=== PATIENT | female | born 1950 | race Caucasian/White ===

== ENCOUNTER 2019-10-29 09:30 | Inpatient (IN) | payer MEDICARE, BC ==
[2019-10-28 12:21] VITALS: BMI 32.1
--- NOTE | 2019-11-02 05:24 | HP ---
REASON FOR HISTORY AND PHYSICAL: Surgery on 11/02/2019, case #[id number]. CHIEF COMPLAINT: Low back pain. HISTORY OF PRESENT ILLNESS: Ms. Iglesias is a 69-year-old female, many years of severe lower back pain. A little over a year ago, she has tried ablations, injections, physical therapy, lifestyle modifications, medications, without any successful permanent relief. Her pain and not having a good quality of life has made her want to attempt surgery. REVIEW OF SYSTEMS: CONSTITUTIONAL: Denies fever or chills. EAR, NOSE, AND THROAT: Denies change in vision or hearing. CARDIAC: Denies chest pain, shortness of breath, or diaphoresis. PULMONARY: Denies shortness of breath, cough, or hemoptysis. GI: Denies abdominal pain, nausea, vomiting, diarrhea, change in stool formation or consistency. : Denies trouble with urination, frequency of urination, or bloody urine. SKIN: Denies skin rash, bruising, bleeding, or skin masses. MUSCULOSKELETAL: As per history of present illness. NEUROLOGIC: As per history of present illness. PSYCHOLOGIC: As per history of present illness. MEDICAL HISTORY: Blood transfusion, depression, headaches, heart disease, high blood pressure, osteoporosis. SURGERIES: In 2004 left shoulder impingement, 1991 right shoulder impingement, in 1990 C5, C6 and C7 fusion; 1987 hysterectomy; 1971 benign tumor lymph gland on the left neck, 2012 Reveal XT hospital monitor implant, 2013 repair 2 tears and removal of the bursa in the right hip; 2013 total hip replacement, right; 2014 right shoulder impingement; 1997 benign biopsy; 2014 implanted pacemaker; 2016 removal of the Reveal XT hospital monitor implant; 2018 Left foot, 2019 cataract. HOSPITALIZATION: As above surgeries. MEDICATIONS: 1. Spironolactone 25 mg. 2. Baby aspirin. 3. Torsemide 20 mg two times a day. 4. Estradiol 0.5 mg. 5. Topamax 50 mg. 6. . 7. Prolia injections. 8. Cymbalta 60 mg. 9. Biotin 1000 mcg. 10. Bystolic 10 mg. 11. D3 1000 international units daily. ADDITIONAL MEDICAL HISTORY: Pulmonary hypertension, CAD, CHF, mitral valve regurgitation, stable angina, syncope, PVD, colitis. ALLERGIES: MORPHINE AND ADHESIVE. FAMILY HISTORY: Father , diagnosed with diabetes and stroke. Mother , diagnosed with hypertension and heart disease. SOCIAL HISTORY: Denies tobacco use or illicit drug use. Occasional alcohol use. PHYSICAL EXAMINATION: VITAL SIGNS: Weight 175, height 5 feet 2 inches. HEENT: Pupils are equal. Extraocular movements are intact. NECK: Soft, supple. No masses are noted. Range of motion is intact and nonpainful. NEUROLOGIC: Awake, alert, and oriented x3. Attention and fund of knowledge normal. Cranial nerves grossly intact. Gait and station: Normal. Motor exam: Normal strength in the iliopsoas, quadriceps, hamstrings, anterior tib, EHL, gastroc, toe flexors. Sensory exam: No dermatomal sensory loss in L1, L2, L3, L4, L5, or S1. Spine exam: Tender lower lumbar facet in extension. IMAGING STUDIES: Myelogram, large L5-S1 facet without neural compression. X-ray ; flexion extension: stable. ASSESSMENT: Spondylosis without myelopathy or radiculopathy. PLAN: 1. TLIF L5-S1. 2. Preop labs; CBC, PT, PTT, COVID-19. 3. Clearance. 4. Orthosis: LSO, lumbosacral orthotics. 5. Stop aspirin 1 week before surgery. May return on aspirin 1 week after surgery. INFORMED CONSENT: We discussed the indications, risks, benefits, alternatives, and expected results from surgery. The risks discussed included, but were not limited to, bleeding, infection, CSF leak, nerve damage, weakness, incontinence, cauda equina injury, arachnoiditis, paralysis, ventilator dependency, wheelchair dependency, loss of vision, hardware misplacement, cardiopulmonary complications of anesthesia or . Long-term complications discussed included, but were not limited to, degeneration of the surrounding disk and future surgery. She understands the risks and is willing to proceed. Job ID: [id number] [facility]
[2019-11-02] MEDS ORDERED: Thrombin 5000 UNITS/5 ML VIAL ONE (06:12)
[2019-11-02] MEDS ORDERED: Bupivacaine PF 0.5% 30 ML VIAL ONE (06:12)
[2019-11-02] MEDS ORDERED: EPINEPHrine 1 MG/ML AMP ONE (06:12)
[2019-11-02] MEDS ORDERED: SUGAMMADEX SODIUM 200 MG/2 ML VIAL ONE (06:57)
[2019-11-02] MEDS ORDERED: Fentanyl 100 MCG/2 ML VIAL ONE ×5 (07:06→14:03)
[2019-11-02] MEDS ORDERED: Phenylephrine 10 MG/ML VIAL ONE (08:17)
[2019-11-02] MEDS ORDERED: PHENYLEPHRINE-NS 100 MCG/ML 10 ML SYRINGE ONE ×2 (08:17→09:20)
[2019-11-02] MEDS ORDERED: Dexamethasone 20 MG/5 ML VIAL ONE (09:20)
[2019-11-02] MEDS ORDERED: Lidocaine 1% PF 5 ML VIAL ONE (09:20)
[2019-11-02] MEDS ORDERED: PROPOFOL 200 MG/20 ML VIAL ONE (09:20)
[2019-11-02] MEDS ORDERED: EPHEDRINE 25 MG/5 ML SYRINGE ONE (09:20)
[2019-11-02] MEDS ORDERED: Ondansetron PF 4 MG/2 ML Vial ONE (09:20)
[2019-11-02] MEDS ORDERED: Rocuronium Bromide 10 MG/ML (10ML VIAL) ONE (09:20)
[2019-11-02] MEDS ORDERED: Scopolamine 1.5 mg/72 hour Patch TD PRN (11:28)
[2019-11-02] MEDS ORDERED: Milk Of Magnesia 30 ML UDCUP PO PRN (11:28)
[2019-11-02] MEDS ORDERED: Mag-Al 1200 mg/1200 mg/30 ML UDCUP PO PRN (11:28)
[2019-11-02] MEDS ORDERED: diphenhydrAMINE 50 MG/ML VIAL IVP PRN (11:28)
[2019-11-02] MEDS ORDERED: tiZANidine HCl 4 MG TAB PO PRN (11:28)
[2019-11-02] MEDS ORDERED: Promethazine 25 MG TAB PO PRN (11:28)
[2019-11-02] MEDS ORDERED: Promethazine HCl 25 MG/ML VIAL IM PRN ×2 (11:28→11:32)
[2019-11-02] MEDS ORDERED: HYDROcodone/Acetaminophen 10/325 mg Tablet PO PRN (11:31)
[2019-11-02] MEDS ORDERED: Furosemide 20 MG TAB PO PRN (11:31)
[2019-11-02] MEDS ORDERED: Ondansetron HCl/PF 4 MG/2 ML Vial IVP PRN (11:32)
[2019-11-02] MEDS ORDERED: Promethazine HCl 25 MG/ML VIAL SLOW IVP PRN (11:32)
[2019-11-02] MEDS ORDERED: Fentanyl 100 MCG/2 ML VIAL SLOW IVP PRN ×2 (11:34→11:35)
[2019-11-02] MEDS ORDERED: Docusate 100 MG CAP PO PRN (11:36)
[2019-11-02] MEDS: CEFAZOLIN 2 GM in Premix Bag 1 BAG IVPB SCH ×2 (14:52→22:22)
--- NOTE | 2019-11-02 17:23 | OP ---
DATE OF PROCEDURE: 11/02/2019 [employer]AL [employer]UCK DRIVER: Justo Carlson PA-C PREOPERATIVE INDICATION: Treat pain and prevent neurological deterioration. PREOPERATIVE DIAGNOSIS: Advanced spondylosis with facet arthropathy and back pain at L5-S1 with some foraminal stenosis at L5-S1, refractory to all nonsurgical management. POSTOPERATIVE DIAGNOSIS: Advanced spondylosis with facet arthropathy and back pain at L5-S1 with some foraminal stenosis at L5-S1, refractory to all nonsurgical management. PROCEDURES PERFORMED: Decompressive laminectomy with medial facetectomy and wide foraminotomy bilateral at L5-S1; transforaminal lumbar interbody arthrodesis L5-S1, placement of intervertebral biomechanical device L5-S1; posterolateral arthrodesis and pedicle screw instrumentation, L5-S1; local morselized autograft, morselized allograft. PREOPERATIVE MEDICATIONS: Ancef 2 g IV. DRAIN NUMBER: Zero. DRAIN TYPE: None. DESCRIPTION OF PROCEDURE: The patient was brought to the operating room. General endotracheal anesthesia was induced. The patient was positioned prone on the operating table with the appropriate padding for the chest and hips. The Heath frame was used. A lateral fluoro radiograph was used to plan our incision. The lumbar skin was sterilely prepped and draped. We opened a midline incision with a 10 blade knife and we controlled bleeding with bipolar and monopolar cautery. We used monopolar cautery to dissect through subcutaneous tissues to the thoracodorsal fascia. We incised the fascia in the midline and reflected the paraspinal muscles off the spinous process and lamina of L5 and S1. A self-retaining retractor was placed and a lateral fluoro radiograph confirmed the levels upon which we were operating. We then dissected over the facet joints at L4-L5 and L5-S1 to identify the sacral ala and the transverse process of L5 bilaterally. We irrigated with bacitracin irrigation. With that Adson rongeur, we removed the spinous process of L5 and the superior portion of the sacrum. We performed a laminectomy with Adson, Leksell, and Kerrison rongeurs. The Retana ball was passed out the L5 foramen with each of the nerve roots. The patient's right L5-S1 foramen was tight and a little bit worse in the L5-S1 foramen on the left side. We performed wide foraminotomies to decompress the neural elements. This was more than what was needed for the arthrodesis alone. We then turned our attention to stabilization once neural elements were decompressed. We performed a complete facetectomy on the left at L5-S1. Through the pathway created by the facetectomy, we could access the intervertebral space. We incised the disk and removed disk contents using curettes and rongeurs. We gently retracted the thecal sac medially and using a bone rasp of progressively increasing diameter, we measured the height of the interspace to 12 mm. A 12-mm PEEK intervertebral graft was brought into the field. Our laminectomy bone was morselized on the back table after cleaning it of soft tissue attachments. The morselized bone was added into demineralized bone matrix to form a fusion substrate and the substrate was packed in the center of the interbody device. Then, we advanced the interbody device under radiographic guidance into the interspace to the appropriate depth. We turned our attention to pedicle screw instrumentation. Using bony anatomic landmarks, palpation of the medial portion of the pedicles and a lateral fluoro radiograph as our guide, we chose entry points for pedicle screws at L5 and S1 bilaterally. We drilled out our entry point, used a bone awl to create our trajectories. We tapped each trajectory with a threaded tap and we probed with a ball probe. We found it completely encased in bone. We placed 6.5 x 40 mm screws in the L5 and S1 pedicles bilaterally. A 360-degree image set was generated with our isocentric C-arm. This confirmed adequate positioning of our pedicle screw instrumentation. We irrigated with bacitracin irrigation. Rods were dropped down into the screw heads and we tightened caps over the rods. We used a gentle compressive force across the interspace to keep our interbody graft in place. Using a torque/counter-torque mechanism, we ensured adequate tightness of the caps. We irrigated once again with bacitracin irrigation. We decorticated the transverse processes and the sacral ala bilaterally. Over the decorticated bone, we left posterolateral fusion substrate comprised of our demineralized bone matrix and morselized autograft. We controlled bleeding with gentle bipolar cautery. We infused local anesthetic in the paraspinal muscles. We treated the wound with vancomycin powder and we closed the wound in anatomical layers. We applied a sterile dressing. This was a clean case, no contamination. Job ID: [id number]
[2019-11-02] MEDS: Acetaminophen 325 MG TAB PO PRN (20:18)
[2019-11-02] MEDS: Sodium Chloride 0.9% 1,000 ML IV SCH (22:21)
[2019-11-02] MEDS: DULoxetine 60 MG CAP PO SCH (22:25)
[2019-11-02] MEDS: Atorvastatin Calcium 20 MG TAB PO SCH (22:25)
[2019-11-02] MEDS: traZODone HCl 50 MG TAB PO SCH (22:26)
[2019-11-02] MEDS ORDERED: Sodium Chloride 0.9% 500 ML IV SCH (22:30)
[2019-11-02] MEDS: Topiramate 25 MG TAB PO SCH (22:44)
[2019-11-03] MEDS ORDERED: Sodium Chloride 0.9% 500 ML IV SCH (01:00)
[2019-11-03 01:17] LABS: #Lymphocytes 0.9 thou/uL (1.20-3.40); #Monocytes 0.9 thou/uL (0.11-0.59); #Neutrophils 8.3 thou/uL (1.40-6.50); %Basophils 0.1 % (0.0-1.0); %Eosinophils 0.1 % (0.0-10.0); %Lymphocytes 8.9 % (21.0-51.0); %Monocytes 8.4 % (0.0-10.0); %Neutrophils 82.5 % (42.0-75.0); Hemoglobin 9.8 g/dL (12.0-16.0); Mean Corpuscular HGB CONC 32.2 g/dL (32.0-36.0); Mean Corpuscular Hemoglobin 32.9 pg (27.0-31.0); Mean Platelet Volume 6.9 fL (7.4-10.4); Platelet Count 185 thou/uL (130-400); RBC Distribution Width 11.9 % (11.5-14.5); Red Blood Cell (RBC) Count 2.98 mill/uL (4.20-5.40)
[2019-11-03 01:37] LABS: ALT (SGPT) 10 U/L (8-55); AST (SGOT) 25 U/L (5-34); Albumin 2.9 g/dL (3.4-4.8); Alkaline Phosphatase 45 U/L (40-110); Anion Gap 11 mmol/L (10-20); BUN (Urea Nitrogen) 16 mg/dL (9.8-20.1); Bilirubin, Total 0.2 mg/dL (0.2-1.2); Calc. Creatinine Clearance 63 mL/min (70-130); Calcium 7.4 mg/dL (7.8-10.44); Carbon Dioxide 20 mmol/L (23-31); Chloride 114 mmol/L (98-107); Estimated GFR-MDRD 52; Globulin 2.1 g/dL (2.4-3.5); Glucose 168 mg/dL (80-115); Potassium 3.5 mmol/L (3.5-5.1); Sodium 141 mmol/L (136-145)
[2019-11-03] MEDS: Sodium Chloride 0.9% 1,000 ML IV SCH ×2 (02:27→13:29)
[2019-11-03] MEDS: Nebivolol HCl 5 MG TAB PO SCH ×2 (02:27→20:21)
--- NOTE | 2019-11-03 07:16 | PRG ---
DATE OF SERVICE: 11/03/2019 I saw Amy Iglesias in our hospital room this morning. She got up in the recovery room yesterday and walked to the bathroom with assistance. She was not allowed far out of bed last night, but rather transfer to bedside commode due to blood pressures in the high 80s and low 90s. Her back feels sore, but the preoperative pain seems different and gone. Among electronically recorded vital signs, there are no fevers. Blood pressures have ranged between the 80s, and 90s. I do not find any new neurological deficits. The lower extremities are working well. They have a good sensation. Today's plan is to mobilize Ms. Iglesias. We will have her sit at the bedside. Check her blood pressure and then we will have her stand and check a blood pressure. If she is not presyncopal and not feeling faint, then she can be ambulated with assistance. We will make sure all the medications we are using did not have any adverse effect on her blood pressure. Job ID: [id number]
[2019-11-03] MEDS: Acetaminophen 325 MG TAB PO PRN ×3 (07:32→20:20)
[2019-11-03] MEDS: Spironolactone 25 MG TAB PO SCH (07:39)
[2019-11-03] MEDS: PARoxetine 20 MG TAB PO SCH (08:48)
[2019-11-03] MEDS: Topiramate 25 MG TAB PO SCH ×2 (08:48→20:20)
[2019-11-03] MEDS: Atorvastatin Calcium 20 MG TAB PO SCH (20:21)
[2019-11-03] MEDS: traZODone HCl 50 MG TAB PO SCH (20:21)
[2019-11-03] MEDS: DULoxetine 60 MG CAP PO SCH (20:21)
[2019-11-04] MEDS: Sodium Chloride 0.9% 1,000 ML IV SCH ×2 (01:27→11:43)
--- NOTE | 2019-11-04 07:33 | PRG ---
DATE OF SERVICE: 11/04/2019 I saw Amy Iglesias in her hospital room this morning. She was up and ambulatory yesterday with physical therapy. However, she did not get in the hallways. She stayed in her room. Overnight, the electronically recorded vital signs do not reveal any fevers. The maximum temperature noted is 99.5 degrees Fahrenheit. Other vital signs have been improved. Her blood pressures have ranged between the 90s and 110s. I do not find any deficits on her neurological examination. Subjective left leg weakness that she noted from yesterday does not seem to be apparent. We will increase mobility today with help of physical therapy. She needs to be independent with activities of daily living before discharge, but once she is, she can go home. Job ID: [id number]
[2019-11-04] MEDS: Spironolactone 25 MG TAB PO SCH (09:47)
[2019-11-04] MEDS: PARoxetine 20 MG TAB PO SCH (09:50)
[2019-11-04] MEDS: Acetaminophen 325 MG TAB PO PRN ×2 (09:50→19:43)
[2019-11-04] MEDS: Topiramate 25 MG TAB PO SCH ×2 (09:50→19:42)
[2019-11-04] MEDS: DULoxetine 60 MG CAP PO SCH (19:42)
[2019-11-04] MEDS: traZODone HCl 50 MG TAB PO SCH (19:42)
[2019-11-04] MEDS: Atorvastatin Calcium 20 MG TAB PO SCH (19:42)
[2019-11-04] MEDS: Nebivolol HCl 5 MG TAB PO SCH (20:39)
[2019-11-05] MEDS: Sodium Chloride 0.9% 1,000 ML IV SCH ×2 (00:38→08:52)
--- NOTE | 2019-11-05 07:06 | PRG ---
DATE OF SERVICE: : I saw Ms. Iglesias, who is 3 days out from a lumbar decompression fusion. She has been having difficulty with her left leg. She has pain in her groin and when she stands on it, the groin pain gets worse. Some hip flexion makes the pain worse as well. Overnight, I do not see any fevers recorded. Her other vital signs look stable. I flexed and internally rotated the hip joint and reproduced the groin pain that is preventing her from moving. I do not find any neurological deficit. Ms. Iglesias has hip joint pain. We are going to have her try some oral antiinflammatories and we will give Protonix to protect her stomach. If this does not give us the relief, we could change the antiinflammatory or consider a radiographically-guided intraarticular injection of steroid so long as the radiologist do it with sterile technique. Job ID: [id number] [facility]
[2019-11-05] MEDS: Topiramate 25 MG TAB PO SCH ×2 (08:50→21:11)
[2019-11-05] MEDS: PARoxetine 20 MG TAB PO SCH (08:50)
[2019-11-05] MEDS: Acetaminophen 325 MG TAB PO PRN ×2 (08:50→21:13)
[2019-11-05] MEDS: Spironolactone 25 MG TAB PO SCH (08:52)
[2019-11-05] MEDS: Ibuprofen 600 MG TAB PO PRN ×2 (11:07→21:11)
[2019-11-05] MEDS: traZODone HCl 50 MG TAB PO SCH (21:11)
[2019-11-05] MEDS: Atorvastatin Calcium 20 MG TAB PO SCH (21:11)
[2019-11-05] MEDS: DULoxetine 60 MG CAP PO SCH (21:11)
[2019-11-05] MEDS: Nebivolol HCl 5 MG TAB PO SCH (21:11)
[2019-11-06] MEDS: Sodium Chloride 0.9% 1,000 ML IV SCH ×3 (00:19→22:07)
--- NOTE | 2019-11-06 08:27 | PRG ---
DATE OF SERVICE: 11/06/2019 I saw Ms. Iglesias in her hospital bed this morning. She did not notice a significant change in her groin pain after addition of ibuprofen to her medicine. She still has difficulty putting her weight on the left leg. Hip flexion, internal rotation do reproduce the pain. Overnight, I do not see any fevers recorded. Her blood pressures have been in the 90s to 100s. There is no change in her neurological examination. Ms. Iglesias is interested in intra-articular injection of steroid medication. If her colleagues in Radiology are available this weekend to perform that in a sterile fashion, we can arrange it. Thereafter, we will stop the ibuprofen and discharge the patient home. Job ID: [id number]
[2019-11-06] MEDS: PARoxetine 20 MG TAB PO SCH (09:04)
[2019-11-06] MEDS: Topiramate 25 MG TAB PO SCH ×2 (09:04→21:41)
[2019-11-06] MEDS: Spironolactone 25 MG TAB PO SCH (09:05)
[2019-11-06] MEDS: Acetaminophen 325 MG TAB PO PRN ×3 (09:08→20:48)
[2019-11-06] MEDS ORDERED: Triamcinolone 40 MG/ML VIAL FS SCH (11:00)
[2019-11-06] MEDS ORDERED: Lidocaine 1% (PF) 30 ML VIAL FS SCH (11:00)
[2019-11-06] MEDS ORDERED: LIDOCAINE 1% I-ARTICULR SCH (11:15)
[2019-11-06] MEDS ORDERED: ADMIXTURE FEE I-ARTICULR SCH (11:15)
[2019-11-06] MEDS ORDERED: TRIAMCINOLONE ACETONIDE I-ARTICULR SCH (11:15)
[2019-11-06] MEDS ORDERED: Iopamidol-M 200 41% 20 ML VIAL ONE (14:43)
--- NOTE | 2019-11-06 16:07 | RAD ---
Fluoroscopically guided left hip arthrogram and steroid injection: 11/06/2019 HISTORY: 69-year-old female with severe left hip pain. TECHNIQUE: Signed informed consent obtained. Patient placed supine on fluoroscopy table. Flight Nurse 2 view radiograph of left hip obtained. Skin anterior to left hip prepared and draped in usual sterile fashion. 25-gauge needle used to apply buffered lidocaine. 22-gauge spinal needle advanced under intermittent fluoroscopy, targeting lateral edge of subcapital region. Injection of approximately 7 mL of Isovue to confirm intracapsular location of needle tip. A 10 mL mixture of 15 mg triamcinolone Aceton and 10 mL of 1% lidocaine, was injected within the intracapsular space of the left hip joint. Needle was removed. Patient tolerated procedure well. No complications. FINDINGS: Flight Nurse view demonstrates left femoral head contour maintained with no subcapital osteophytes. Hip join t space is maintained. Mild to moderate bony hypertrophy of acetabular roof. No other abnormality of left hip joint identified. Bilateral pedicle screws at lower lumbar spine with wide midline lenard ctomy defect, posterior skin rafael, and bilateral onlay bone graft bone chips around posterior elements. Fluoroscopic images demonstrate iodinated contrast in the subcapsular space of the left hip . This becomes redistributed after steroid injection. IMPRESSION: 1. Successful arthrogram and successful steroid injection into left hip joint. 2. Other than the hypertrophy of the acetabular roof, the left hip has a normal radiographic appearan ce. 3. Postsurgical changes of the lower lumbar spine: Posterior lumbar interbody fusion and laminectomy
[2019-11-06] MEDS: Atorvastatin Calcium 20 MG TAB PO SCH (20:48)
[2019-11-06] MEDS: traZODone HCl 50 MG TAB PO SCH (20:48)
[2019-11-06] MEDS: Nebivolol HCl 5 MG TAB PO SCH (20:48)
[2019-11-06] MEDS: DULoxetine 60 MG CAP PO SCH (20:48)
--- NOTE | 2019-11-07 07:54 | PRG ---
DATE OF SERVICE: 11/07/2019 I saw Ms. Iglesias in her hospital room this morning. An intra-articular steroid injection was administered yesterday in the left hip. All of her hip pain went away. Her groin feels wonderful. She is ready for discharge. Discharge orders were placed yesterday and she is still here. Overnight, I do not see any fevers recorded. Her blood pressures have been in the 90s to 100s. There are no new deficits on her neurological examination. Ms. Iglesias can be discharged as was ordered. Job ID: [id number]
[2019-11-07] MEDS ORDERED: Meloxicam 15 MG TAB PO SCH (09:00)
--- NOTE | 2019-11-07 09:08 | DIS ---
DATE OF ADMISSION: 11/02/2019 DATE OF DISCHARGE: 11/07/2019 HOSPITAL COURSE: Ms. Iglesias is a 69-year-old female with many years of severe low back pain. She underwent a L5-S1 TLIF. Following her surgery, she was transitioned to the [facility] Surgery floor, where her pain was well controlled with p.o. medications. She is tolerating regular diet and voiding appropriately. She is otherwise doing well, but not ambulating so easily. She complains of left hip pain. Physical therapy increased mobilization of the patient to help her, but she is still complaining of not being able to ambulate as well because of her left hip pain. On November 05, she had a left intra-articular steroid injection. Her hip pain went away and feels great. She feels that she is ready to go home today. PHYSICAL EXAMINATION: GENERAL: Today, she is awake, alert, in no acute distress. She has free active range of motion of all her extremities. No focal motor weakness. No reflex asymmetry. Her incision is clean, dry, and intact. PLAN: We will plan to discharge Ms. Iglesias home today. CONDITION ON DISCHARGE: The patient had no emergencies. Condition was stable for discharge. MEDICATION: Ongoing medications were reviewed. FOLLOWUP: Followup arrangements made by our account services coordinator in the clinic and call to the patient. ACTIVITIES: Restrictions were reviewed in person. Wound care showers are acceptable. The patient should pat the incision dry, but not submerge it under the surface of the body of water for 2 months. Job ID: [id number]
[2019-11-07] MEDS: PARoxetine 20 MG TAB PO SCH (09:22)
[2019-11-07] MEDS: Topiramate 25 MG TAB PO SCH (09:22)
[2019-11-07] MEDS: Sodium Chloride 0.9% 1,000 ML IV SCH (09:23)
[2019-11-07] MEDS: Spironolactone 25 MG TAB PO SCH (09:23)
[2019-11-07 11:44] VITALS: TEMP 97.6
[2019-11-07 11:46] VITALS: BP 110/60
[2019-11-07] MEDS: Acetaminophen 325 MG TAB PO PRN (11:51)
== END 2019-11-07 11:55 | disposition home or self-care (01) | DRG 455 ==
LOC: SURG A 11-02 05:24
PROVIDERS: ADMIT Neurological Surgery; ATTEND Neurological Surgery
PROC: 0SG00AJ Fusion of Lumbar Vertebral Joint with Interbody Fusion Device, Posterior Approach, Anterior Column, Open Approach (ICD-10-PCS; principal; 2019-11-02)
PROC: 0SG3071 Fusion of Lumbosacral Joint with Autologous Tissue Substitute, Posterior Approach, Posterior Column, Open Approach (ICD-10-PCS; 2019-11-02)
PROC: 00NY0ZZ Release Lumbar Spinal Cord, Open Approach (ICD-10-PCS; 2019-11-02)
PROC: 3E0U33Z Introduction of Anti-inflammatory into Joints, Percutaneous Approach (ICD-10-PCS; 2019-11-06)
PROC: BQ011ZZ Plain Radiography of Left Hip using Low Osmolar Contrast (ICD-10-PCS; 2019-11-06)
DX: M47.817 Spondylosis without myelopathy or radiculopathy, lumbosacral region (principal); F32.9 Major depressive disorder, single episode, unspecified; M81.0 Age-related osteoporosis without current pathological fracture; Z96.612 Presence of left artificial shoulder joint; I27.20 Pulmonary hypertension, unspecified; I73.9 Peripheral vascular disease, unspecified; I25.10 Atherosclerotic heart disease of native coronary artery without angina pectoris; I50.9 Heart failure, unspecified; Z96.611 Presence of right artificial shoulder joint; Z96.641 Presence of right artificial hip joint; Z95.0 Presence of cardiac pacemaker; Z90.710 Acquired absence of both cervix and uterus; Z88.6 Allergy status to analgesic agent; Z88.8 Allergy status to other drugs, medicaments and biological substances
CPT/HCPCS: 20610; 36415; 76000; 77002; 80053; 85025; C1713; C1768; J0171; J0690; J1100; J2370; J2405; J2704; J3010; J3370; J3490; J7050; Q9966; S0020